=== PATIENT | male | born 1960 | race Caucasian/White ===

== ENCOUNTER 2020-10-12 08:34 | Outpatient (CLI) | payer BC, SELFPAY ==
--- NOTE | ~2020-10-12 | MR_ITS ---
EXAMINATION: MR shoulder LT wo con DATE: 10/12/2020 09:29 INDICATION: Left shoulder pain TECHNIQUE: Magnetic resonance imaging (MRI) of the left shoulder was performed without intravenous co ntrast. Sequences included axial PD-weighted FS FSE, coronal oblique PD-weighted FS FSE, coronal obli que T2-weighted FS FSE, sagittal PD-weighted FS FSE, and sagittal T1-weighted SE. COMPARISON: None. FINDINGS: Coracoacromial arch: The acromion undersurface is curved in morphology (type II). The coracoacromial ligament is normal. M oderate acromioclavicular osteoarthritis with small marginal osteophytes which contact and exert mild mass effect upon the underlying supraspinatus muscle belly. Rotator cuff: Mild supraspinatus and infraspinatus tendinopathy without discrete tear. The teres minor tendon is no rmal. The subscapularis tendon is normal. Normal rotator cuff muscle bulk and signal. Biceps tendon, glenoid labrum and glenohumeral cartilage: Long head of the biceps tendon is normal. Diffuse degenerative tearing of the superior and more sever diaz posterior and inferior glenoid labrum. Full-thickness cartilage loss along the posterior third of the glenoid. Subarticular cystic change along the posterior rim of the glenoid. Small marginal osteo phytes about the glenoid. Partial-thickness cartilage loss with chondral surface regularity along erick sonably humeral head most severe superiorly. Large marginal osteophytes are present about the humeral head. Fluid: Physiologic amount of fluid in the glenohumeral joint and biceps tendon sheath. Synovitis and 10 x 4 x 6 mm loose body at the axillary recess. No abnormally increased fluid in the subacromial/subdeltoid bursa to suggest bursitis. Bones: Normal marrow signal with no edema, fracture or abnormal marrow replacing process. Mild cystic change at the greater tuberosity. IMPRESSION: 1. Severe glenohumeral osteoarthritis with extensive degenerative tearing of the labrum. 2. Moderate acromioclavicular osteoarthritis. 3. Mild supraspinatus and infraspinatus tendinopathy without discrete tear. Reviewed, dictated and finalized at location A. ATIONS EXAMINER IMPRESSION: 1. Severe glenohumeral osteoarthritis with extensive degenerative tearing of th e labrum. 2. Moderate acromioclavicular osteoarthritis. 3. Mild supraspinatus and infraspinatus tendinopathy without discrete tear.
== END 2020-10-12 08:35 | disposition home or self-care (01) ==
PROVIDERS: PCP Internal Medicine
DX: M19.012 Primary osteoarthritis, left shoulder (principal)
CPT/HCPCS: 73221

== ENCOUNTER 2022-09-23 08:22 | Outpatient (CLI) | payer BC, SELFPAY ==
--- NOTE | ~2022-09-23 | CT_ITS ---
EXAMINATION: CT shoulder LT wo con DATE: 09/23/2022 08:43 INDICATION: Preoperative planning TECHNIQUE: High resolution computed tomography (CT) of the left shoulder was performed without intrav enous contrast. Additional sagittal and coronal reconstructions were performed. Automated exposure co ntrol and iterative reconstruction technique were employed. The dose-length product was 470.66 mGy-cm . COMPARISON: MRI dated 10/12/2020 FINDINGS: Bone alignment is normal. No fracture. The acromion undersurface is flat in morphology (type I). Mode rate to severe left acromioclavicular osteoarthritis. Severe left glenohumeral osteoarthritis with va cuum phenomena delineating the region of deep chondral ulceration with underlying subarticular cystli ke changes at the posterior aspect of the glenoid and portions of the posteroinferomedial aspect of t he humeral head. There is early remodeling along the posterior aspect of the glenoid with approximate ly 10 degrees retroversion of the glenoid. Small to moderate-sized marginal osteophytes along the ant erior, superior and inferior margins of the glenoid and large marginal osteophytes along the inferome dial aspect of the humeral head. Loose osteochondral body and minimal fluid at the axillary recess. S mall osteophytes along the floor of the intertubercular groove. No asymmetric muscular atrophy of the rotator cuff or shoulder girdle. Visualized portions of the left mid to upper lung are clear. IMPRESSION: 1. Severe left glenohumeral osteoarthritis and moderate to severe acromioclavicular osteoarthritis. Reviewed, dictated and finalized at location L. FLOAT IMPRESSION: 1. Severe left glenohumeral osteoarthritis and moderate to severe acromioclavic ular osteoarthritis.
== END 2022-09-23 08:23 | disposition home or self-care (01) ==
PROVIDERS: PCP Internal Medicine; Visit Provider Orthopaedic Surgery
DX: M19.012 Primary osteoarthritis, left shoulder (principal)
CPT/HCPCS: 73200

== ENCOUNTER 2022-11-03 10:58 | Outpatient (CLI) | payer BC, SELFPAY ==
--- NOTE | 2022-11-03 11:49 | ECG_ITS ---
Measurements Intervals Rake Rate: 52 P: 63 CT: 178 QRS: 42 QRSD: 101 T: 48 QT: 417 QTc: 389 Interpretive Statements SINUS BRADYCARDIA DELAYED PRECORDIAL R/S TRANSITION BASELINE ARTIFACT- I, II, AVR, AVL, AVF BORDERLINE ECG NO PREVIOUS ECG AVAILABLE FOR COMPARISON Electronically Signed On 11-03-2022 13:15:51 COMMAND AND CONTROL SYSTEMS INTEGRATOR by Oswald Stewart D.O.
[2022-11-03 13:00] LABS: Basophils Absolute Auto 0.1 K/mm3 (0.0-0.1); Basophils Percent Auto 1.6 % (0.2-1.2); Eosinophils Absolute Auto 0.4 K/mm3 (0-0.3); Hemoglobin 16.1 g/dL (14.0-18.0); Lymphocytes Absolute Auto 1.97 K/mm3 (0.9-3.2); Mean Corpuscular HGB Conc 33.5 g/dl (32-36); Mean Corpuscular Hemoglobin 30.6 pg (26-34); Mean Corpuscular Volume 91.3 fl (80-100); Mean Platelet Volume 9.3 fl (7.4-10.4); Monocytes Absolute Auto 0.8 K/mm3 (0.1-0.6); Monocytes Percent Auto 12.5 % (2.6-8.5); Neutrophils Absolute Auto 2.9 K/mm3 (1.3-6.7); Neutrophils Percent Auto 47.9 % (45.5-73.1); Platelet Count Result 323 k/mm3 (150-375); Red Blood Count 5.26 M/mm3 (4.6-6.20); Red Cell Distribution Width 13.2 % (11.5-14.5); White Blood Count 6.2 K/mm3 (4.5-10.0)
== END 2022-11-03 10:59 | disposition home or self-care (01) ==
LOC: ANHSURGERY 11:01
PROVIDERS: PCP Internal Medicine; Visit Provider Orthopaedic Surgery
DX: M19.012 Primary osteoarthritis, left shoulder (principal); I10 Essential (primary) hypertension; Z01.818 Encounter for other preprocedural examination; R94.31 Abnormal electrocardiogram [ECG] [EKG]
CPT/HCPCS: 36415; 85025; 87081; 93005

== ENCOUNTER 2022-12-02 00:29 | Day surgery (SDC) | payer BC, SELFPAY ==
--- NOTE | 2022-11-03 11:30 | PC.NURSE ---
Report to the Outpatient Waiting Room, entrance under the green pavilion located off [facility], at time 0600 on date __12/02/22 . Planned Procedure Time: _0730 . Time changes happen often and if your time is changed the preop area will call you the afternoon before. - You and your visitor will be asked to self-screen and do not enter if you have any COVID symptoms. - Only one visitor is requested with a max of two and NO children visitors are allowed at this time. - The patient visitor may be requested to leave or wait in car when not with patient due to distancing restrictions. - A mask is optional within the hospital at this time. Patients may have clear liquids (water, carbonated beverages, clear teas, apple juice) until 3 hours prior to surgery with a maximum of 20 ounces. - No food from midnight until time of surgery - Infants may have breast milk until 4 hours before surgery, formula 6 hours prior to surgery. - Children will be allowed to drink immediately following surgery. If applicable, please bring a bottle or sippy cup to assist with drinking. Juice, water, soda, and popsicles are readily available. For infants on formula, please bring formula the day of surgery. Pacifiers are allowed. Take the following medications with a SIP of water the morning of surgery: ___GABAPENTIN,NEBIVOLOL,SERTRALINE, TRAMADOL IF NEEDED DO NOT STOP ANY OF YOUR OTHER PRESCRIPTION MEDICATIONS PRIOR TO SURGERY ?EXCEPT THE FOLLOWING Medications to discontinue per physician ____ASPIRIN AND IBUPROFEN 7 DAYS PRE OP. LAST DOSE 11/24/22 ALL VITAMINS/SUPPLEMENTS 3 DAYS PRE OP. LAST DOSE 11/28/22 Please no make-up, nail lithuanian, hairspray, perfume, deodorant, or body powder the day of surgery. No jewelry (including any body piercings) or valuables the day of surgery, leave them at home. Please take a shower or bath the night before, or the morning of, surgery with an antibacterial soap. Wear comfortable, loose fitting clothing. Children are encouraged to wear pajamas. - Jewelry must be removed prior to entering the operating room. Rings and piercings that are not removed may be cut off. - The hospital will not accept responsibility for valuables. - Please leave all valuables, including medications, at home the day of surgery. If you are going home after surgery, a licensed goat driver must drive you home. - NO public transportation without another adult if you receive anesthesia. - We recommend that an adult stay with you for 24 hours following discharge. - We also recommend that you do not drive, make important decision, drink alcoholic beverages, or take any drugs that were not prescribed by your health care provider for at least 24 hours after your discharge time. Follow any additional instructions given to you from your surgeon. If you or anyone in your household have experienced Covid symptoms in the past week, please notify your surgeon or the nurse liaison at the phone number below for possible yumiko [employer]BAL [employer] WRITTEN instructions given to ___PATIENT AND WIFE and asked if any additional questions and then verbalized understanding. Patient advised to call surgeon office or pre surgery nurse liaison [phone] if any additional questions.
[2022-11-03 11:48] VITALS: BP 174/96; PULSE 53; RESP 18; TEMP 37.2; O2SAT 100; BMI 27.6
[2022-12-02] VITALS (12 sets, daily range): BP systolic 104–144; BP diastolic 53–93; PULSE 57–72; RESP 12–18; TEMP 36.1–36.8; O2SAT 96–100
--- NOTE | ~2022-12-02 | XR_ITS ---
EXAMINATION: XR shoulder LT min 2V DATE: 12/02/2022 12:09 INDICATION: Left total shoulder arthroplasty. TECHNIQUE: AP and transscapular Y views of the left shoulder were obtained. COMPARISON: None FINDINGS: Left total shoulder arthroplasty which appears well seated in near-anatomic alignment. No fracture. M oderate left acromioclavicular osteoarthritis. Acromioclavicular joint is normal. Expected small amou nt of soft tissue gas at the operative bed. Persistent small loose osteochondral body at the axillary recess. IMPRESSION: Expected appearance post left total shoulder arthroplasty. Reviewed, dictated and finalized at location A.
[2022-12-02] MEDS: LACTATED RINGERS 1,000 ML 30 ML IV CONT ×2 (06:30→11:34)
[2022-12-02] MEDS: ACETAMINOPHEN 500 MG TABLET 1000 MG PO (06:55)
[2022-12-02] MEDS: TRANEXAMIC ACID 1,000MG/ISO100 1,000 MG/100 ML BAG 200 MG IVPB (07:00)
--- NOTE | 2022-12-02 07:11 | WPDANESEPPF ---
Anes - Initial Pre Proc Eval Procedure: Operation Date: 12/02/22 07:30 Proposed Procedures p Left Anatomic Total Shoulder Arthroplasty - Elias Adame MD Date/Time: 12/02/22 07:11 Surgeon: Elias Adame MD Pre Op Diagnosis: primary oa left shoulder Patient Data Age: 62 Gender: M Height: 1.8 m Weight: 87.5 kg Last Vital Signs Temp 36.3 C L 12/02/22 07:00 Pulse 57 L 12/02/22 07:00 Resp 14 12/02/22 07:00 BP 138/84 12/02/22 07:00 Pulse Ox 100 12/02/22 07:00 O2 Del Method Room Air 12/02/22 07:00 Allergies Allergy/AdvReac Type Severity Reaction Status Date / Time No Known Allergies Allergy Verified 12/02/22 07:08 Home Medications Medication Instructions Recorded Confirmed Type tramadol 100 mg tablet 100 mg PO Q6H PRN Pain 09/10/22 11/17/22 History acetaminophen 500 mg capsule 1,000 mg PO Q6H PRN Pain 11/03/22 11/17/22 History aspirin 81 mg tablet,delayed 81 mg PO EVERY OTHER DAY 11/03/22 11/17/22 History release (Adult Low Dose Aspirin) atorvastatin 10 mg tablet 10 mg PO QAM 11/03/22 12/02/22 History cetirizine 10 mg tablet (Zyrtec) 10 mg PO DAILY 11/03/22 12/02/22 History cholecalciferol (vitamin D3) 125 125 mcg PO DAILY 11/03/22 11/17/22 History mcg (5,000 unit) tablet gabapentin 300 mg capsule 300 mg PO BID 11/03/22 11/17/22 History ibuprofen 400 mg tablet 400 mg PO Q6H PRN Pain 11/03/22 11/17/22 History multivitamin 1 tablet PO DAILY 11/03/22 11/17/22 History nebivolol 20 mg tablet 20 mg PO QAM 11/03/22 12/02/22 History omeprazole 20 mg tablet,delayed 20 mg PO DAILY 11/03/22 11/17/22 History release sertraline 100 mg tablet 100 mg PO DAILY 11/03/22 12/02/22 History Patient hx anesthesia problems: none Family hx anesthesia problems: none Results Review: All pre-operative results and documents have been reviewed as part of the pre-operative evaluation. [facility] Past Medical History Medical History (Updated 12/02/22 @ 07:13 by Franki Hagen MD) Anxiety Chronic GERD Chronic narcotic use History of hypertension History of osteoporosis Hyperlipemia Osteoarthritis of left shoulder Surgical History Surgical History H/O splenectomy (~1964) History of cervical spinal surgery Anterior cervical discectomy with fusion History of hip surgery Left 2007 Right 2008 Hx of tonsillectomy (~1985) Social History Social History Smoking status: Never smoker Lack of Transportation: No Lack of Food: Never True Current Housing: I Have Housing Concerned About Future Housing: No Difficulty Paying Gas/Electric Bills: No Difficulty Paying for Meds: No Currently Unemployed: No Education: Master's Degree or Higher Difficulty w/ Childcare or Family Care: No Living arrangements: with family Spiritual care concerns: No Anes - Eval Final PreProcedure Day of Procedure 12/02/22 07:11 Patient weight: overweight Heart: regular rate and rhythm Lungs: clear to auscultation and normal air movement Airway: Mallampati scale class II Neurological: alert and oriented Last oral intake: >/= 8 hours ASA classification: III Emergent: no Anesthetic plan: proceed Anesthesia type and monitoring: general GIVS Results Review: All pre-operative results and documents have been reviewed as part of the pre-operative evaluation. Informed Consent: The patient's anesthetic plan and its attendant risks and benefits were discussed with the patient/family/POA. Questions were solicited and answers provided to the satisfaction of the patient/family/POA.
--- NOTE | 2022-12-02 07:16 | WPDANESPNB ---
Anes - Peripheral Nerve Block Date/Time: 12/02/22 07:16 I have discussed with the patient/family/POA the placement of a peripheral nerve block for post-operative pain management, including associated risks, benefits, complications, and side effects. Alternative methods of post-operative analgesia were detailed. Questions were solicited and answers provided to the satisfaction of the patient/family/POA. Time-Out: A pre-procedural Time-Out was completed immediately before starting the procedure and confirmed: Patient Identification, Site, Procedure, Patient Position and the Availability of Requisite Equipment. Clinical Indications: Acute post-operative pain management requested by the operative surgeon. Nerve Block Insertion Note Anes-nerve block: supraclavicular left Patient position: supine Skin prep: chlorhexidine Needle: 22 gauge, stimulating, insulated echogenic needle. Needle length: 80 mm Technique: ultrasound (in plane) Injectate: bupivacaine 0.25% with epi 5 mcg/ml (20cc) Observations: tolerated well Complications: none Procedure start time:: 740 Procedure end time::
--- NOTE | 2022-12-02 07:20 | WPDHPUPDATE1 ---
History and Physical Update Update Date/Time: 12/02/22 07:20 History and Physical has been reviewed, including an updated exam of the patient. There are NO changes in the patient's condition. Risks, benefits, and alternatives have been discussed and questions answered. Patient agrees to proceed with procedure.
[2022-12-02] MEDS: ceFAZolin 2 GM/D5W 50 ML 2 GM/50 ML BAG IVPB ×2 (07:53→16:29)
[2022-12-02] MEDS: VANCOMYCIN HCL 1,000 MG VIAL 1000 MG TOPICAL (08:43)
[2022-12-02] MEDS: HYDROGEN PEROXIDE 3% SOLN(*SP) 473 ML BOTTLE 237 ML IRRIGATION (08:44)
--- NOTE | 2022-12-02 12:20 | W.PM.PROC2 ---
Procedure Note - Detailed Date of Procedure 12/02/22 Pre-op Diagnosis Primary oa left shoulder Post-op Diagnosis Same Procedure Performed Left anatomic total shoulder arthroplasty 2. Lesser tuberosity osteotomy 3. Biceps tenodesis Surgeon Elias Adame MD Paintless Dent Repair Technician Claudine Funez PA-C Anesthesia General and Regional (Interscalene block.) Findings Severe disease with a very large humeral spur. Very good bone quality. Large musculature. Moderately difficult exposure, in part due to previous arthroscopic labral surgery. Stemless humeral stem with excellent press fit. Description of Procedure The patient was given an interscalene block in the preoperative area. Preoperative antibiotics were given. The patient was transferred to the operating room and a general anesthetic was administered. The beach chair position was used at 35 degrees. All bony prominences were padded. The head was carefully stabilized on the [place] head irrigator. A sterile prep and drape was performed in the usual manner with Chloraprep. A longitudinal incision was created at the anterior shoulder just lateral to the deltopectoral interval. Careful dissection was performed to expose the interval and protect the cephalic vein. The vein was retracted medially. The upper border of the pectoralis was released. Anterior circumflex vessel branches were suture ligated. The biceps was tenodesed. A small lesser tuberosity osteotomy was performed after opening the joint capsule at the rotator interval. The inferior capsule was released, exposing the humeral head. Osteophytes were removed. Care was taken to stay on bone to protect the axillary nerve. A Fukuda was placed in the joint. The subscapularis was mobilized, the inferior capsule and long head of triceps released, and the superior and middle glenohumeral ligaments released as well. Attention was turned to the humerus again. The anatomic head cut was taken with the oscillating saw. Sounding and broaching was performed. The neck anteversion and inclination were carefully assessed. Head sizing and offset were determined. The cut protector was placed, and attention was turned to the glenoid. Retractors were placed. Releases were carried out for exposure. Labral tissue was resected. The sizing template was used and a guide pin was placed. Less than 5 degrees deformity correction was performed. The reamer was placed over the guide pin taken down to create a 2-3 millimeter minimal wall. The peg drill guide was applied and the pegs drilled. The trial component was placed and fit very nicely. Excellent stability was confirmed. The real component was cemented into position. Excess cement was carefully removed. The humerus was prepared for subscapularis repair with the drilling and passage of 4 suture leaders. The real humeral stem and head were impacted into position. The shoulder was copiously irrigated periodically with pulsatile lavage. The shoulder was reduced and the subscapularis repaired with number 5 Ethibond suture modified Franco-Jose sutures. An additional tape suture was placed around the trunnion and tied in a horizontal mattress at the junction of the capsule/tendon and the osteotomy. The rotator interval was reapproximated laterally. The biceps tenodesis was incorporated with the pectoralis tendon repair using 5. Ethibond suture. The deltopectoral space was reapproximated with 2-0 Vicryl. The remaining tissue was closed with 0 Quill and 2-0 Quill running suture and steri-strips. A sterile dressing and shoulder immobilizer was placed. The patient was transferred to the recovery room. Physician payroll assistant, Claudine Funez PA-C, required for surgery; including patient positioning, draping, tissue retraction, maintaining instrument position, cement removal, wound closure, and dressing placement. Implants Shoulder Innovations Inset Shoulder System; Humeral stemless size 0. Offset Humeral Head 19 x 50mm Articulation. Glenoid Circular I
--- NOTE | 2022-12-02 13:16 | ADMGEN ---
This patient, Mina Patiño, was admitted to 2 Medical Room 242-. Patient/family oriented to hospital policies and general routines including ID bracelet, bed and alarms, visiting hours, pain management, procedures, bathroom and other care routines, personal items, smoking policy, room service/diet, and visiting hours. Information on how to activate the Rapid Response Team has been discussed. Patient/Family are encouraged to report perceived risks to care and to ask questions if they do not understand what they are told or what they should do.
[2022-12-02] MEDS: polyethylene glycoL 3350 17 GM POWD.PACK PO (14:36)
[2022-12-02] MEDS: MELOXICAM 7.5 MG TABLET PO (18:05)
[2022-12-02] MEDS: GABAPENTIN 300 MG CAPSULE PO (18:06)
[2022-12-02] MEDS: ASPIRIN 81 MG ENTERIC TABLET PO (18:06)
[2022-12-02] MEDS: SENNA/DOCUSATE SODIUM TABLET 2 TAB PO (18:08)
[2022-12-02] MEDS: oxyCODONE HCL (*CRX) 5 MG TAB IR 10 MG PO (23:51)
[2022-12-03] MEDS: ceFAZolin 2 GM/D5W 50 ML 2 GM/50 ML BAG IVPB ×2 (00:26→09:10)
[2022-12-03 00:48] VITALS: BP 139/79; PULSE 60; RESP 16; TEMP 37; O2SAT 96
[2022-12-03] MEDS: oxyCODONE HCL (*CRX) 5 MG TAB IR PO ×2 (03:17→09:17)
[2022-12-03 05:48] LABS: Basophils Absolute Auto 0.1 K/mm3 (0.0-0.1); Basophils Percent Auto 0.8 % (0.2-1.2); Eosinophils Absolute Auto 0.5 K/mm3 (0-0.3); Eosinophils Percent Auto 4.4 % (0-4.4); Hematocrit 39.7 % (42.0-52.0); Hemoglobin 13.2 g/dL (14.0-18.0); Immature Granulocyte Absolute 0.04 K/mm3 (0.00-0.031); Immature Granulocyte Percent A 0.3 % (0-0.5); Lymphocytes Absolute Auto 2.34 K/mm3 (0.9-3.2); Lymphocytes Percent Auto 19.5 % (18.3-44.2); Mean Corpuscular HGB Conc 33.2 g/dl (32-36); Mean Corpuscular Hemoglobin 30.4 pg (26-34); Mean Corpuscular Volume 91.5 fl (80-100); Mean Platelet Volume 9.4 fl (7.4-10.4); Monocytes Absolute Auto 1.6 K/mm3 (0.1-0.6); Neutrophils Absolute Auto 7.4 K/mm3 (1.3-6.7); Platelet Count Result 259 k/mm3 (150-375); Red Blood Count 4.34 M/mm3 (4.6-6.20); Red Cell Distribution Width 13.2 % (11.5-14.5)
[2022-12-03 05:58] LABS: Anion Gap 5 mmol/L (8-16); Blood Urea Nitrogen 13 mg/dL (9-20); Calcium 8.6 mg/dL (8.4-10.2); Carbon Dioxide 29 mmol/L (22-30); Chloride 103 mmol/L (98-107); Estimated CRCL calculation 100 ml/min; Estimated Glomerular Filt Rate > 60; Glucose 103 mg/dL (65-110); Potassium 4.1 mmol/L (3.4-5.0); Sodium 137 mmol/L (137-145)
[2022-12-03 06:05] VITALS: BP 141/80; PULSE 60; RESP 16; TEMP 36.4; O2SAT 100
[2022-12-03] MEDS: oxyCODONE HCL (*CRX) 5 MG TAB IR 10 MG PO (06:14)
--- NOTE | 2022-12-03 07:58 | WPDANESPN ---
Anes - Prog Note Post-Op Date/Time: 12/03/22 07:58 Cardiovascular status: normal Respiratory status: normal Airway patency: baseline Mental status: baseline Post-Op hydration status: normal Vital Signs: Last Vital Signs Temp 36.4 C 12/03/22 06:05 Pulse 60 12/03/22 06:05 Resp 16 12/03/22 06:05 BP 141/80 H 12/03/22 06:05 Pulse Ox 100 12/03/22 06:05 O2 Del Method Room Air 12/02/22 20:00 O2 Flow Rate 10 12/02/22 11:50 Pain Score (VAS): 0 I/O: Intake & Output 12/02/22 12/02/22 12/03/22 15:59 23:59 07:59 Intake Total 550 1030 550 Balance 550 1030 550 Laboratory Tests 12/03/22 05:06 12/03/22 05:06 12/03/22 12/03/22 05:06 05:06 WBC 12.0 H RBC 4.34 L Hgb 13.2 L Hct 39.7 L MCV 91.5 MCH 30.4 MCHC 33.2 RDW 13.2 Plt Count 259 MPV 9.4 Immature Gran % (Auto) 0.3 Neut % (Auto) 62.0 Lymph % (Auto) 19.5 [place] % (Auto) 13.0 H Eos % (Auto) 4.4 Baso % (Auto) 0.8 Lymph # (Auto) 2.34 [place] # (Auto) 1.6 H Eos # (Auto) 0.5 H Baso # (Auto) 0.1 Abs Immat Gran (auto) 0.04 H Absolute Neuts (auto) 7.4 H Absolute Nucleated RBC 0.0 Nucleated RBC % 0.0 Sodium 137 Potassium 4.1 Chloride 103 Carbon Dioxide 29 Anion Gap 5 L BUN 13 Creatinine 0.70 Estim Creat Clear Calc 100 Estimated GFR > 60 Glucose 103 Calcium 8.6 Post-procedural complaints: none Patient Feedback: Patient satisfied with anesthetic care.
--- NOTE | 2022-12-03 08:35 | PM.DS ---
DS: Admitting Diagnosis Discharge Date 12/03/22 Admitting Diagnosis Glenohumeral joint arthritis DS: Discharge Diagnosis Discharge Diagnosis (1) Status post total replacement of left shoulder: Code(s): Z96.612 - Presence of left artificial shoulder joint Status: Acute Assessment and Plan: Postop day 1: Left total shoulder arthroplasty. Patient tolerated procedure well. No complications. Pain manageable with pain medication. No numbness or tingling. We had a lengthy discussion regarding postoperative wound care, limitations, expectations, and exercises. Patient shows good understanding. He has had initial physical therapy and is tolerating it well. DVT prophylaxis: 81 mg baby aspirin b.i.d. for 14 days. Pain medication: Percocet. Meloxicam. Patient has followup appointment with Dr. Adame in 3 weeks. DS: Summary Hospital Course Hospital Course: Right anatomic total shoulder arthroplasty. No complications. Patient has had initial physical therapy and occupational therapy. Status at Discharge Functional status at discharge: independent ambulation Overall status at discharge: patient is progressing back to baseline Time Spent with Patient Time attestation: Total time spent providing and/or coordinating discharge services: Exam Narrative: Normal weight 62 y/o male. Alert and oriented x3. No acute distress. Resting comfortably in bed. Wearing sling. Dressing dry and intact with no drainage. Mild swelling. Mild ecchymosis. No erythema. Range of motion limited due to pain. Good finger, wrist, elbow range of motion. Neurologic status intact. Light touch sensation intact. Normal capillary refill. No varicosities. Distal pulses palpable. DS: Data Data Completed and Pending Labs on day of discharge: Labs from last 24 hours 12/03/22 12/03/22 05:06 05:06 WBC 12.0 H RBC 4.34 L Hgb 13.2 L Hct 39.7 L MCV 91.5 MCH 30.4 MCHC 33.2 RDW 13.2 Plt Count 259 MPV 9.4 Immature Gran % (Auto) 0.3 Neut % (Auto) 62.0 Lymph % (Auto) 19.5 [place] % (Auto) 13.0 H Eos % (Auto) 4.4 Baso % (Auto) 0.8 Lymph # (Auto) 2.34 [place] # (Auto) 1.6 H Eos # (Auto) 0.5 H Baso # (Auto) 0.1 Abs Immat Gran (auto) 0.04 H Absolute Neuts (auto) 7.4 H Absolute Nucleated RBC 0.0 Nucleated RBC % 0.0 Sodium 137 Potassium 4.1 Chloride 103 Carbon Dioxide 29 Anion Gap 5 L BUN 13 Creatinine 0.70 Estim Creat Clear Calc 100 Estimated GFR > 60 Glucose 103 Calcium 8.6 Discharge Plan Discharge Patient Disposition: Home, Self-Care Discharge Instructions: See green instruction sheets Stand Alone Forms: General Discharge Instructions Follow-up/Referrals: Clauidne Funez PA [Physician [employer] Straightener Stamper] - Discharge Medications: New meloxicam 15 mg tablet 15 mg PO DAILY Qty: 30 0RF Rx Instructions: Cut in half. Take 1/2 in morning and 1/2 at night. Take with food. Stop if stomach upset. aspirin 81 mg tablet,delayed release (DR/EC) 81 mg PO BID 14 Days Qty: 28 0RF oxycodone-acetaminophen 5-325 mg tablet 1 - 2 tablet PO Q4-6H MDD 6 PRN (Reason: pain) Qty: 30 0RF Continued tramadol 100 mg tablet 100 mg PO Q6H PRN (Reason: Pain) atorvastatin 10 mg tablet 10 mg PO QAM gabapentin 300 mg capsule 300 mg PO BID nebivolol 20 mg tablet 20 mg PO QAM sertraline 100 mg Tablet 100 mg PO DAILY aspirin [Adult Low Dose Aspirin] 81 mg Tablet,Delayed Release (Dr/Ec) 81 mg PO EVERY OTHER DAY multivitamin Tablet 1 tablet PO DAILY cholecalciferol (vitamin D3) 125 mcg (5,000 unit) Tablet 125 mcg PO DAILY omeprazole 20 mg Tablet,Delayed Release (Dr/Ec) 20 mg PO DAILY cetirizine [Zyrtec] 10 mg Tablet 10 mg PO DAILY ibuprofen 400 mg Tablet 400 mg PO Q6H PRN (Reason: Pain) acetaminophen 500 mg Capsule 1,000 mg PO Q6H PRN (Reason: Pain)
[2022-12-03 09:08] VITALS: BP 152/78; PULSE 73
[2022-12-03] MEDS: ASPIRIN 81 MG ENTERIC TABLET PO (09:14)
[2022-12-03] MEDS: ATORVASTATIN 10 MG TABLET PO (09:14)
[2022-12-03] MEDS: GABAPENTIN 300 MG CAPSULE PO (09:15)
[2022-12-03] MEDS: SENNA/DOCUSATE SODIUM TABLET 2 TAB PO (09:15)
[2022-12-03] MEDS: MELOXICAM 7.5 MG TABLET PO (09:15)
[2022-12-03 09:16] VITALS: PULSE 73
[2022-12-03] MEDS: NEBIVOLOL HCL 5 MG TABLET 20 MG PO (09:16)
[2022-12-03] MEDS: PANTOPRAZOLE 40 MG TABLET PO (09:16)
[2022-12-03] MEDS: SERTRALINE HCL 50 MG TABLET 100 MG PO (09:17)
[2022-12-03] MEDS: polyethylene glycoL 3350 17 GM POWD.PACK PO (09:17)
== END 2022-12-03 12:02 | disposition home or self-care (01) ==
LOC: ANHSURGERY 08:32 → ANH2MED 12:56
PROVIDERS: Physician Assistant Surgical; PCP Internal Medicine; Visit Provider Orthopaedic Surgery
PROC: (CPT 23472; principal; 2022-12-02 07:30)
DX: M19.012 Primary osteoarthritis, left shoulder (principal); G89.18 Other acute postprocedural pain; I10 Essential (primary) hypertension; E78.5 Hyperlipidemia, unspecified; M81.0 Age-related osteoporosis without current pathological fracture; K21.9 Gastro-esophageal reflux disease without esophagitis; F41.9 Anxiety disorder, unspecified; Z79.891 Long term (current) use of opiate analgesic; Z79.82 Long term (current) use of aspirin; Z98.1 Arthrodesis status; Z90.81 Acquired absence of spleen
CPT/HCPCS: 23472; 64415; 36415; 73030; 80048; 85025; 86850; 86900; 86901; 97110; 97161; 97165; 97530; 97535; A4565; A9270; C1713; C1776; J0131; J0171; J0330; J0690; J1885; J2250; J2270; J2405; J2704; J2795; J3010; J3370; J7120

== ENCOUNTER 2023-03-19 07:01 | Outpatient (CLI) | payer BC, SELFPAY ==
--- NOTE | ~2023-03-19 | MR_ITS ---
MRI of the right shoulder Technique: Axial proton-density fat-sat images, coronal proton density fat-sat and T2 fat-sat images, and sagittal T1-weighted and T2 fat-sat images were acquired. Clinical History: Pain Findings: There is severe AC joint degenerative change. Coracoclavicular, coracoacromial, and coracoh umeral ligaments appear intact. There is a moderate grade interstitial tear at the distal supraspinatus tendon insertion, with tear m easuring 1 cm in length (series 4 image 12). No full-thickness tear of the supraspinatus or infraspin atus tendons are identified. There is mild to moderate background tendinosis. Subscapularis tendon is intact with mild to moderate tendinosis. Tendon of the long head of the biceps is intact. No definite labral tear identified. Inferior glenohumeral ligament is intact. Small glenohumeral joint effusion is present. No fluid dist ention of the subacromial/subdeltoid bursa. There is mild to moderate chondromalacia of the humeral h ead. No muscle atrophy or edema identified. Impression: Moderate grade interstitial tear of the distal supraspinatus tendon, as detailed above, with backgrou nd moderate rotator cuff tendinosis. Severe AC joint degenerative change. 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 Reviewed, dictated and finalized at [facility]. Impression: Moderate grade interstitial tear of the distal supraspinatus tendon, as detaile d above, with background moderate rotator cuff tendinosis. Severe AC joint degenerative change. 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
== END 2023-03-19 07:02 | disposition home or self-care (01) ==
PROVIDERS: PCP Internal Medicine; Visit Provider Orthopaedic Surgery
DX: M19.011 Primary osteoarthritis, right shoulder (principal); M94.211 Chondromalacia, right shoulder; S46.911A Strain of unspecified muscle, fascia and tendon at shoulder and upper arm level, right arm, initial encounter; T14.90XA Injury, unspecified, initial encounter
CPT/HCPCS: 73221

== ENCOUNTER 2024-01-22 07:39 | Outpatient (CLI) | payer OTHER, SELFPAY ==
--- NOTE | ~2024-01-22 | MR_ITS ---
MRI of the left shoulder Technique: Axial proton-density fat-sat images, coronal proton density fat-sat and T2 fat-sat images, and sagittal T1-weighted and T2 fat-sat images were acquired. Clinical History: Pain Findings: Patient is status post shoulder arthroplasty, with associated hardware and extensive suscep tibility artifact, which limits evaluation. There is probable moderate to advanced degenerative bowers es AC joint with bony productive change of the distal clavicle. Coracoclavicular ligaments are intact . Rotator cuff tendons are not adequately evaluated on this exam due to surrounding metallic artifact. No muscle atrophy or edema evident. No large joint effusion clearly evident. Impression: Limited exam due to shoulder arthroplasty with associated extensive metallic artifact present. Moderate AC joint degenerative change. No other gross abnormality seen. Reviewed, dictated and finalized at [facility]. Impression: Limited exam due to shoulder arthroplasty with associated extensive metallic ar tifact present. Moderate AC joint degenerative change. No other gross abnormality seen.
== END 2024-01-22 07:40 ==
LOC: MICIMG 07:40
PROVIDERS: PCP Internal Medicine; Visit Provider Orthopaedic Surgery
DX: M19.012 Primary osteoarthritis, left shoulder (principal); Z96.612 Presence of left artificial shoulder joint
CPT/HCPCS: 73221

== ENCOUNTER 2024-04-01 00:16 | Day surgery (SDC) | payer OTHER, SELFPAY ==
[2024-03-30 11:33] VITALS: BMI 27.9
--- NOTE | 2024-03-30 11:34 | PC.NURSE ---
Report to the Outpatient Waiting Room, entrance under the green pavilion located off [facility], at time _1000_ on date _[id number]_. Planned Procedure Time: _1200_. Time changes happen often and if your time is changed the preop area will call you the afternoon before. - You and your visitor will be asked to self-screen and do not enter if you have any COVID symptoms. - A mask is optional within the hospital at this time. Patients may have clear liquids (water, carbonated beverages, clear teas, apple juice) until 3 hours prior to surgery with a maximum of 20 ounces. - No food from midnight until time of surgery - Infants may have breast milk until 4 hours before surgery, infant formula 6 hours prior to surgery. - Children will be allowed to drink immediately following surgery. If applicable, please bring a bottle or sippy cup to assist with drinking. Juice, water, soda, and popsicles are readily available. For infants on formula, please bring formula the day of surgery. Pacifiers are allowed. Take the following medications with a SIP of water the morning of surgery: ___Duloxetine DO NOT STOP ANY OF YOUR OTHER PRESCRIPTION MEDICATIONS PRIOR TO SURGERY ?EXCEPT THE FOLLOWING Medications to discontinue per physician ____Vitamin D3 and Aspirin Date to take last dose___Stop now Please no make-up, nail hebrew, hairspray, perfume, deodorant, or body powder the day of surgery. No jewelry (including any body piercings) or valuables the day of surgery, leave them at home. Please take a shower or bath the night before, or the morning of, surgery with an antibacterial soap. Wear comfortable, loose fitting clothing. - Jewelry must be removed prior to entering the operating room. Rings and piercings that are not removed may be cut off. - The hospital will not accept responsibility for valuables. - Please leave all valuables, including medications, at home the day of surgery. If you are going home after surgery, a licensed service parts driver must drive you home. - NO public transportation without another adult if you receive anesthesia. - We recommend that an adult stay with you for 24 hours following discharge. - We also recommend that you do not drive, make important decision, drink alcoholic beverages, or take any drugs that were not prescribed by your health care provider for at least 24 hours after your discharge time. Follow any additional instructions given to you from your surgeon. If you or anyone in your household have experienced Covid symptoms in the past week, please notify your surgeon or the nurse liaison at the phone number below for possible testing. Telephone instructions given to __Abhijit___and asked if any additional questions and then verbalized understanding. Patient advised to call surgeon office or pre surgery nurse liaison [phone] if any additional questions.
[2024-04-01] VITALS (8 sets, daily range): BP systolic 131–153; BP diastolic 78–87; PULSE 54–68; RESP 12–16; TEMP 36.4–36.8; O2SAT 97–100
[2024-04-01] MEDS: EPINEPHrine HCL INJ 1 MG/ML AMPUL 3 MG IRRIGATION (08:30)
--- NOTE | 2024-04-01 09:49 | ECG_ITS ---
Test Date: 2024-04-01 10:07:59 Measurements Intervals [place] Rate: 52 P: 39 AR: 177 QRS: 44 QRSD: 93 T: 62 QT: 413 QTc: 387 Interpretive Statements SINUS BRADYCARDIA LOW VOLTAGE IN THE LIMB LEADS BORDERLINE ECG No previous ECG available for comparison Electronically Signed On 04-01-2024 11:36:13 CDT by Hai Mesa M.D.
[2024-04-01] MEDS: LACTATED RINGERS 1,000 ML 30 ML IV CONT ×2 (10:45→14:02)
--- NOTE | 2024-04-01 11:35 | WPDHPUPDATE1 ---
History and Physical Update Update Date/Time: 04/01/24 11:35 History and Physical has been reviewed, including an updated exam of the patient. There are NO changes in the patient's condition. Risks, benefits, and alternatives have been discussed and questions answered. Patient agrees to proceed with procedure.
--- NOTE | 2024-04-01 11:53 | WPDANESEPPF ---
Anes - Initial Pre Proc Eval Procedure: Operation Date: 04/01/24 12:00 Proposed Procedures p Left Shoulder Arthroscopic Synovectomy, Subacromial Decompression with Synovial Biopsy - Elias Adame MD Date/Time: 04/01/24 11:53 Surgeon: Elias Adame MD Pre Op Diagnosis: S.P. Left Shoulder Replacement, Lt Shoulder Pain Patient Data Age: 63 Gender: M Height: 1.8 m Weight: 92.6 kg Last Vital Signs Temp 36.8 C 04/01/24 10:45 Pulse 54 L 04/01/24 10:45 Resp 14 04/01/24 10:45 BP 153/87 H 04/01/24 10:45 Pulse Ox 100 04/01/24 10:45 O2 Del Method Room Air 04/01/24 10:45 Allergies Allergy/AdvReac Type Severity Reaction Status Date / Time No Known Allergies Allergy Verified 04/01/24 11:06 Home Medications Medication Instructions Recorded Confirmed Type aspirin 81 mg tablet,delayed 81 mg PO EVERY OTHER DAY 11/03/22 03/30/24 History release (Adult Low Dose Aspirin) atorvastatin 10 mg tablet 10 mg PO QAM 11/03/22 03/30/24 History cetirizine 10 mg tablet (Zyrtec) 10 mg PO DAILY 11/03/22 03/30/24 History cholecalciferol (vitamin D3) 125 125 mcg PO DAILY 11/03/22 03/30/24 History mcg (5,000 unit) tablet duloxetine 30 mg capsule,delayed 30 mg PO DAILY 01/13/24 03/30/24 History release (Cymbalta) nebivolol 40 mg PO DAILY 04/01/24 04/01/24 History Patient hx anesthesia problems: none Family hx anesthesia problems: none Results Review: All pre-operative results and documents have been reviewed as part of the pre-operative evaluation. [facility] Past Medical History Medical History Anxiety Chronic GERD Chronic narcotic use History of hypertension History of osteoporosis Hyperlipemia Osteoarthritis of left shoulder Surgical History Surgical History H/O splenectomy (~1965) History of cervical spinal surgery Anterior cervical discectomy with fusion History of hip surgery Left 2007 Right 2008 History of total replacement of left shoulder joint (~12/02/22) Left anatomic total shoulder arthroplasty w/ Lesser tuberosity osteotomy And Biceps tenodesis Hx of tonsillectomy (~1985) Social History Social History Smoking status: Never smoker Second hand tobacco smoke exposure: Yes Alcohol intake: never Substance use: never Do You Feel Safe in your Home?: Yes Lack of Transportation: No Lack of Food: Never True Current Housing: I Have Housing Concerned About Future Housing: No Difficulty Paying Gas/Electric Bills: No Difficulty Paying for Meds: No Currently Unemployed: No Education: Master's Degree or Higher Difficulty w/ Childcare or Family Care: No Living arrangements: with family Spiritual care concerns: No Anes - Eval Final PreProcedure Day of Procedure 04/01/24 11:53 Patient weight: overweight Heart: regular rate and rhythm Lungs: clear to auscultation Airway: Mallampati scale class II Neurological: alert and oriented Last oral intake: >/= 8 hours ASA classification: II Emergent: no Anesthetic plan: proceed Anesthesia type and monitoring: general ETT and standard monitoring Results Review: All pre-operative results and documents have been reviewed as part of the pre-operative evaluation. Informed Consent: The patient's anesthetic plan and its attendant risks and benefits were discussed with the patient/family/POA. Questions were solicited and answers provided to the satisfaction of the patient/family/POA.
[2024-04-01] MEDS: BUPIVACAINE/EPINEPHRINE 0.5% 10 ML VIAL 30 ML INFILTRATE (13:02)
--- NOTE | 2024-04-01 13:30 | SUR.OPER ---
requested specimens be sent to pathology in formalin.
--- NOTE | 2024-04-01 14:43 | W.PM.PROC2 ---
Procedure Note - Detailed Date of Procedure 04/01/24 Pre-op Diagnosis Status post left anatomic total shoulder. Left shoulder pain and impingement. Post-op Diagnosis Same Procedure Performed Left shoulder arthroscopic partial synovectomy with biopsy, and subacromial decompression. Surgeon Elias Adame MD Tape Edge Machine Operator Claudine Funez PA-C Anesthesia General and Local (30 mL 0.5% Marcaine with epinephrine.) Indications Preoperative sed rate and CRP were normal. 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 It was elected to obtain biopsies to rule out occult infection. Primarily lateral pain consistent with bursal side impingement or cuff disease. MRI was unrevealing. Findings The articular surfaces appeared healthy. The polyethylene glenoid was stable. There were loose sutures at the subscapularis area. These Ethibond sutures were removed and sent for biopsy. No significant capsulitis that would suggest infection. The subscapularis tissue did not appear definitely torn but slightly attenuated. The supraspinatus showed partial-thickness articular sided tearing. Four cultures were taken at the anterior capsule, superior capsule and inferior capsule. The subacromial bursa had significant thickened bursal tissue. This was excised. The bursal cuff which was marked during intra-articular visualization did not show any significant tearing or softening on the bursal side. Evidence for prior acromioplasty was noted and modest shaving of the undersurface of the acromion to smooth this area was performed. During examination and inspection there did not appear to be any abnormal contractures. Description of Procedure Preoperative antibiotics were given. The patient was brought to the operating room. Careful positioning in the beach chair was accomplished. The head neck were carefully positioned. A small bump was placed under the shoulder. The shoulder was prepped and draped in the usual sterile fashion. Examination under anesthesia performed. No abnormal findings. Standard posterior and anterior arthroscopic portals were established. The humeral and glenoid prostheses appeared to be stable intact and in good alignment. No loosening of the glenoid. Mild inflammation but no significant signs of capsulitis. A few areas of overgrown synovium were debrided with the arthroscopic shaver. Culture samples were sent from the anterior superior and inferior capsule. There were some loose at the Abreu sutures at the anterior capsule. These were removed and sent for culture samples. The subscapularis tissue appeared to be rather robust although it was difficult to ascertain the quality of the tendon. The supraspinatus showed partial tearing. This was between 30 and 50%. The remaining tissue did not appear degenerative. Gentle debridement of the loose tissue was performed. Attention was turned to the subacromial space. Bursa certainly had some areas of hypertrophic bands which were excised. The previously marked supraspinatus did not show any significant pathology on the bursal side. There was no definite areas of impingement from the acromion although there was a bit of prominence at the most lateral aspect. A single culture sample was taken from bursal tissue. Careful modest acromioplasty was performed. Loose bone fragments were carefully irrigated from the joint. The arthroscopic instruments were removed. The wounds were closed with interrupted 3-0 Monocryl suture followed by Steri-Strips. A sterile dressing was applied with a sling. The patient was extubated and brought to the recovery room in stable condition. There were no complications. Estimated Blood Loss 10 Drains No Packing No Pathology None sent Complications No immediate complications Condition Stable Disposition PACU [facility] Billing Surgery - Charge Forward: Surgery Billing
[2024-04-01] MEDS: oxyCODONE HCL (*CRX) 5 MG TAB IR PO (15:12)
== END 2024-04-01 15:55 | disposition home or self-care (01) ==
PROVIDERS: PCP Internal Medicine; Visit Provider Orthopaedic Surgery
PROC: (CPT 29805; principal; 2024-04-01 12:00)
DX: M75.42 Impingement syndrome of left shoulder (principal); M75.82 Other shoulder lesions, left shoulder; Z96.612 Presence of left artificial shoulder joint; I10 Essential (primary) hypertension; M81.0 Age-related osteoporosis without current pathological fracture; E78.5 Hyperlipidemia, unspecified; K21.9 Gastro-esophageal reflux disease without esophagitis; F41.9 Anxiety disorder, unspecified; Z90.81 Acquired absence of spleen
CPT/HCPCS: 29822; 88305; 93005; A9270; J0171; J0330; J1100; J1885; J2250; J2405; J2704; J3010; J7120